=== PATIENT | male | born 1945 | race Caucasian/White ===

== ENCOUNTER 2021-04-23 12:10 | Outpatient (CLI) | payer MEDICARE, OTHER | END 2021-04-23 12:11 | disposition home or self-care (01) | LOC: CSHCT 12:10 | PROVIDERS: ATTEND Psychiatry & Neurology Neurology | DX: G43.701 Chronic migraine without aura, not intractable, with status migrainosus (principal); G93.89 Other specified disorders of brain | CPT/HCPCS: 70450 ==

== ENCOUNTER 2021-07-10 21:36 | Emergency (ER) | payer OTHER, MEDICARE ==
[2021-07-10] MEDS ORDERED: Lidocaine 1% w/Epinephrine 1:100K 20 ML VIAL ONE (23:03)
== END 2021-07-11 00:26 | disposition home or self-care (01) ==
LOC: CSHERS 21:36
DX: S01.01XA Laceration without foreign body of scalp, initial encounter (principal); S20.212A Contusion of left front wall of thorax, initial encounter; W01.190A Fall on same level from slipping, tripping and stumbling with subsequent striking against furniture, initial encounter; Y93.01 Activity, walking, marching and hiking; Y92.008 Other place in unspecified non-institutional (private) residence as the place of occurrence of the external cause; Z79.82 Long term (current) use of aspirin; Z79.899 Other long term (current) drug therapy; Z95.0 Presence of cardiac pacemaker; Z98.890 Other specified postprocedural states
CPT/HCPCS: 12001; 70450; 71045; 72125

== ENCOUNTER 2021-07-23 13:05 | Outpatient (CLI) | payer MEDICARE, OTHER | END 2021-07-23 13:06 | disposition home or self-care (01) | LOC: CSHCT 13:05 | PROVIDERS: ATTEND Thoracic Surgery (Cardiothoracic Vascular Surgery) | DX: I71.2 Thoracic aortic aneurysm, without rupture (principal) | CPT/HCPCS: 71250 ==

== ENCOUNTER 2021-09-30 00:55 | Emergency (ER) | payer OTHER, MEDICARE | END 2021-09-30 02:19 | disposition home or self-care (01) | LOC: CSHERS 00:55 | DX: S42.202A Unspecified fracture of upper end of left humerus, initial encounter for closed fracture (principal); W01.0XXA Fall on same level from slipping, tripping and stumbling without subsequent striking against object, initial encounter; I10 Essential (primary) hypertension; E78.5 Hyperlipidemia, unspecified; E11.9 Type 2 diabetes mellitus without complications; M19.90 Unspecified osteoarthritis, unspecified site; Z79.82 Long term (current) use of aspirin; Z79.899 Other long term (current) drug therapy ==

== ENCOUNTER 2022-02-05 18:13 | Inpatient (IN) | payer MEDICARE, OTHER ==
[2022-02-05] MEDS ORDERED: HYDROcodone/Acetaminophen 5/325 mg Tablet PO SCH (19:30)
[2022-02-05] MEDS ORDERED: Pantoprazole 40 MG VIAL IVP SCH (20:00)
[2022-02-05 20:08] LABS: #Basophils 0.1 10x3/uL (0.0-0.2); #Eosinphils 0.1 10x3/uL (0.0-0.5); #Monocytes 0.4 10x3/uL (0.0-1.1); #Neutrophils 2.6 10x3/uL (1.5-8.4); %Basophils 1.2 % (0.0-2.0); %Eosinophils 2.5 % (0.0-6.0); %Monocytes 9.4 % (0.0-10.0); %Neutrophils 59.7 % (40.0-75.0); Mean Corpuscular HGB CONC 31.5 g/dL (32.0-36.0); Mean Corpuscular Hemoglobin 27.3 pg (27.0-33.0); Mean Corpuscular Volume 86.7 fl (81.2-95.1); Mean Platelet Volume 9.4 fl (7.4-10.4); Platelet Count 282 10x3/uL (150-450); RBC Distribution Width 14.7 % (11.5-14.5); Red Blood Cell (RBC) Count 2.93 10x6/uL (4.32-5.72); White Blood Cell (WBC) Count 4.3 10x3/uL (3.5-10.5)
[2022-02-05 20:20] LABS: Magnesium 2.2 mg/dL (1.6-2.6)
[2022-02-05 20:21] LABS: INR-International Normal Ratio 0.9; PTT 31.3 sec (22.0-33.0); Prothrombin Time 10.3 sec (9.5-12.1)
[2022-02-05 20:25] LABS: Troponin I 0.016 ng/mL (< 0.028)
[2022-02-05 20:33] VITALS: BMI 22.1
[2022-02-05] MEDS ORDERED: [UNRECOGNIZED DRUG - OTHER] PO PRN (20:56)
[2022-02-05] MEDS ORDERED: ACETAMINOPHEN PO PRN (20:56)
[2022-02-05] MEDS ORDERED: Polyethylene Glycol 3350 17 GM Packet PO PRN (20:56)
[2022-02-05] MEDS ORDERED: CAFFEINE PO PRN (20:56)
[2022-02-05] MEDS ORDERED: BUTALB PO PRN (20:56)
[2022-02-05] MEDS ORDERED: Terazosin HCl 5 MG CAP PO SCH (22:00)
[2022-02-05] MEDS ORDERED: Gabapentin 300 MG CAP PO SCH (22:00)
[2022-02-05] MEDS: Terazosin HCl 5 MG CAP PO SCH (22:36)
[2022-02-05] MEDS: Sodium Chloride 0.9% 1,000 ML IV SCH (22:36)
[2022-02-05 23:31] LABS: Hemoglobin 7.1 g/dL (13.5-17.5)
[2022-02-05 23:44] LABS: Troponin I 0.013 ng/mL (< 0.028)
[2022-02-06] MEDS ORDERED: HYDROcodone/Acetaminophen 7.5/325 mg Tablet PO PRN ×2 (00:25)
[2022-02-06] MEDS ORDERED: Morphine 4 MG/ML VIAL SLOW IVP PRN (00:28)
[2022-02-06] MEDS ORDERED: Morphine 2 MG/ML VIAL SLOW IVP PRN (00:48)
[2022-02-06] MEDS ORDERED: Lidocaine 5% Patch TD SCH ×2 (01:00→22:00)
[2022-02-06 05:17] LABS: #Basophils 0.1 10x3/uL (0.0-0.2); #Eosinphils 0.2 10x3/uL (0.0-0.5); #Monocytes 0.4 10x3/uL (0.0-1.1); %Basophils 1.3 % (0.0-2.0); %Eosinophils 4.6 % (0.0-6.0); %Lymphocytes 23.7 % (18.0-47.0); %Monocytes 9.2 % (0.0-10.0); Hemoglobin 7.7 g/dL (13.5-17.5); Mean Corpuscular HGB CONC 31.8 g/dL (32.0-36.0); Mean Corpuscular Hemoglobin 27.3 pg (27.0-33.0); Mean Corpuscular Volume 85.8 fl (81.2-95.1); Mean Platelet Volume 9.6 fl (7.4-10.4); Platelet Count 295 10x3/uL (150-450); RBC Distribution Width 14.7 % (11.5-14.5); Red Blood Cell (RBC) Count 2.82 10x6/uL (4.32-5.72); White Blood Cell (WBC) Count 3.9 10x3/uL (3.5-10.5)
[2022-02-06] MEDS: Sodium Chloride 0.9% 1,000 ML IV SCH ×3 (07:19→19:13)
[2022-02-06] MEDS ORDERED: Calcium Citrate 950 MG (200MG) TAB PO SCH (09:00)
[2022-02-06] MEDS: Cholecalciferol 1,000 UNITS (25 MCG) TAB PO SCH (12:21)
[2022-02-06] MEDS: Ferrous Sulfate 325 MG TAB PO SCH ×2 (12:21→18:01)
[2022-02-06] MEDS: Lubiprostone 8 MCG CAP PO SCH ×2 (12:21→18:00)
[2022-02-06] MEDS: Fluticasone Propionate Nasal Spray 16 gm Bottle NASAL SCH (12:27)
[2022-02-06] MEDS: Cyanocobalamin (Vitamin B-12) 1,000 MCG TAB PO SCH (12:27)
[2022-02-06] MEDS: Magnesium Oxide 400 MG TAB PO SCH (12:28)
[2022-02-06] MEDS: Gabapentin 300 MG CAP PO SCH ×3 (12:28→21:21)
[2022-02-06] MEDS: Vit A,C & E/Lutein/Minerals Tablet PO SCH (12:29)
[2022-02-06] MEDS: Topiramate 25 MG TAB PO SCH (12:44)
[2022-02-06] MEDS ORDERED: Transdermal Patch Removal TOP SCH (13:00)
[2022-02-06] MEDS: Pantoprazole 40 MG VIAL IVP SCH ×2 (13:05→21:22)
[2022-02-06] MEDS ORDERED: PROPOFOL 20 ML ONE (14:34)
[2022-02-06 15:42] LABS: ALT (SGPT) 14 U/L (8-55); AST (SGOT) 14 U/L (5-34); Albumin 3.1 g/dL (3.4-4.8); Alkaline Phosphatase 97 U/L (40-110); Anion Gap 11 mmol/L (10-20); BUN (Urea Nitrogen) 21 mg/dL (8.4-25.7); Bilirubin, Total 0.2 mg/dL (0.2-1.2); Calc. Creatinine Clearance 47 mL/min (70-130); Calcium 8.5 mg/dL (7.8-10.44); Carbon Dioxide 23 mmol/L (23-31); Chloride 106 mmol/L (98-107); Globulin 2.7 g/dL (2.4-3.5); Glucose 143 mg/dL (83-110); Potassium 4.2 mmol/L (3.5-5.1); Protein, Total 5.8 g/dL (5.8-8.1); Sodium 136 mmol/L (136-145)
[2022-02-06] MEDS ORDERED: GoLYTELY 4,000 ml Bottle PO SCH (17:00)
[2022-02-06 17:52] LABS: ALT (SGPT) 14 U/L (8-55); AST (SGOT) 14 U/L (5-34); Albumin 3.4 g/dL (3.4-4.8); Alkaline Phosphatase 111 U/L (40-110); Anion Gap 13 mmol/L (10-20); BUN (Urea Nitrogen) 17 mg/dL (8.4-25.7); Bilirubin, Total 0.6 mg/dL (0.2-1.2); Calc. Creatinine Clearance 49 mL/min (70-130); Calcium 8.6 mg/dL (7.8-10.44); Carbon Dioxide 23 mmol/L (23-31); Chloride 107 mmol/L (98-107); Globulin 3.2 g/dL (2.4-3.5); Glucose 178 mg/dL (83-110); Potassium 3.8 mmol/L (3.5-5.1); Protein, Total 6.6 g/dL (5.8-8.1); Sodium 139 mmol/L (136-145)
[2022-02-06] MEDS: Fioricet 325/50/40 mg Tablet PO PRN (18:00)
[2022-02-06 19:45] LABS: Hemoglobin A1c 5.8 % (4.0-6.0)
[2022-02-06] MEDS: Terazosin HCl 5 MG CAP PO SCH (21:21)
[2022-02-07] MEDS: Fioricet 325/50/40 mg Tablet PO PRN ×2 (04:02→11:00)
[2022-02-07 04:09] LABS: #Eosinphils 0.1 10x3/uL (0.0-0.5); #Monocytes 0.4 10x3/uL (0.0-1.1); #Neutrophils 2.8 10x3/uL (1.5-8.4); %Basophils 0.9 % (0.0-2.0); %Eosinophils 2.9 % (0.0-6.0); %Lymphocytes 25.2 % (18.0-47.0); %Monocytes 9.4 % (0.0-10.0); %Neutrophils 61.2 % (40.0-75.0); Hemoglobin 9.4 g/dL (13.5-17.5); Mean Corpuscular HGB CONC 32.9 g/dL (32.0-36.0); Mean Corpuscular Hemoglobin 27.6 pg (27.0-33.0); Mean Corpuscular Volume 83.9 fl (81.2-95.1); Mean Platelet Volume 9.6 fl (7.4-10.4); Platelet Count 310 10x3/uL (150-450); RBC Distribution Width 14.7 % (11.5-14.5); Red Blood Cell (RBC) Count 3.41 10x6/uL (4.32-5.72); White Blood Cell (WBC) Count 4.6 10x3/uL (3.5-10.5)
[2022-02-07 04:20] LABS: ALT (SGPT) 15 U/L (8-55); AST (SGOT) 14 U/L (5-34); Albumin 3.1 g/dL (3.4-4.8); Alkaline Phosphatase 111 U/L (40-110); Anion Gap 16 mmol/L (10-20); BUN (Urea Nitrogen) 13 mg/dL (8.4-25.7); Calc. Creatinine Clearance 61 mL/min (70-130); Calcium 8.4 mg/dL (7.8-10.44); Carbon Dioxide 22 mmol/L (23-31); Cardiac Risk 2.3 (Less than 4.5); Chloride 108 mmol/L (98-107); Cholesterol 138 mg/dl (< 200 Desired); Globulin 3.1 g/dL (2.4-3.5); Glucose 86 mg/dL (83-110); HDL Cholesterol 60 mg/dL (>60 Neg Risk); LDL Cholesterol, Calculated 69 mg/dL; Magnesium 1.8 mg/dL (1.6-2.6); Potassium 3.8 mmol/L (3.5-5.1); Protein, Total 6.2 g/dL (5.8-8.1); Sodium 142 mmol/L (136-145); Triglycerides 47 mg/dL (Less than 150)
[2022-02-07 04:23] LABS: Bilirubin, Total 0.3 mg/dL (0.2-1.2)
[2022-02-07] MEDS: Fluticasone Propionate Nasal Spray 16 gm Bottle NASAL SCH (04:30)
[2022-02-07] MEDS: Sodium Chloride 0.9% 1,000 ML IV SCH (06:41)
[2022-02-07] MEDS ORDERED: HYDROmorphone 0.5 MG/0.5 ML SYRINGE ONE (06:43)
[2022-02-07] MEDS ORDERED: PROPOFOL 40 ML ONE (06:57)
[2022-02-07] MEDS ORDERED: Lidocaine 2% MPF 10 ML AMP (For Epidural Use) ONE (06:57)
[2022-02-07] MEDS ORDERED: Transdermal Patch Removal TOP SCH (10:00)
[2022-02-07] MEDS: Magnesium Oxide 400 MG TAB PO SCH (10:13)
[2022-02-07] MEDS: Cholecalciferol 1,000 UNITS (25 MCG) TAB PO SCH (10:13)
[2022-02-07] MEDS: Gabapentin 300 MG CAP PO SCH (10:13)
[2022-02-07] MEDS: Vit A,C & E/Lutein/Minerals Tablet PO SCH (10:14)
[2022-02-07] MEDS: Ferrous Sulfate 325 MG TAB PO SCH (10:14)
[2022-02-07] MEDS: Topiramate 25 MG TAB PO SCH (10:14)
[2022-02-07] MEDS: Lubiprostone 8 MCG CAP PO SCH (10:15)
[2022-02-07] MEDS: Cyanocobalamin (Vitamin B-12) 1,000 MCG TAB PO SCH (10:15)
[2022-02-07] MEDS: Pantoprazole 40 MG VIAL IVP SCH (10:17)
[2022-02-07 16:15] VITALS: BP 147/91; TEMP 98.5
== END 2022-02-07 15:45 | disposition home or self-care (01) | DRG 378 ==
LOC: CSHTELE 18:23 → OBSVTOIN 19:49
PROVIDERS: ADMIT Internal Medicine; ATTEND Family Medicine
PROC: 0DJ08ZZ Inspection of Upper Intestinal Tract, Via Natural or Artificial Opening Endoscopic (ICD-10-PCS; principal; 2022-02-06)
PROC: 30233N1 Transfusion of Nonautologous Red Blood Cells into Peripheral Vein, Percutaneous Approach (ICD-10-PCS; 2022-02-06)
PROC: 0DJD8ZZ Inspection of Lower Intestinal Tract, Via Natural or Artificial Opening Endoscopic (ICD-10-PCS; 2022-02-07)
DX: K92.1 Melena (principal); D62 Acute posthemorrhagic anemia; R27.0 Ataxia, unspecified; G44.209 Tension-type headache, unspecified, not intractable; E11.9 Type 2 diabetes mellitus without complications; G43.909 Migraine, unspecified, not intractable, without status migrainosus; I25.118 Atherosclerotic heart disease of native coronary artery with other forms of angina pectoris; I10 Essential (primary) hypertension; G93.89 Other specified disorders of brain; G89.29 Other chronic pain; K64.8 Other hemorrhoids; E78.5 Hyperlipidemia, unspecified; K57.30 Diverticulosis of large intestine without perforation or abscess without bleeding; R29.6 Repeated falls; Z20.822 Contact with and (suspected) exposure to COVID-19; N40.1 Benign prostatic hyperplasia with lower urinary tract symptoms; R39.11 Hesitancy of micturition; Z95.0 Presence of cardiac pacemaker; Z79.02 Long term (current) use of antithrombotics/antiplatelets; Z79.891 Long term (current) use of opiate analgesic; Z95.5 Presence of coronary angioplasty implant and graft; Z79.899 Other long term (current) drug therapy; Z79.82 Long term (current) use of aspirin; Z79.01 Long term (current) use of anticoagulants; Z98.890 Other specified postprocedural states; Z90.49 Acquired absence of other specified parts of digestive tract; Z87.891 Personal history of nicotine dependence; Z98.1 Arthrodesis status; Z82.49 Family history of ischemic heart disease and other diseases of the circulatory system
CPT/HCPCS: 36415; 36416; 36430; 70450; 80053; 80061; 83036; 83735; 84443; 84484; 85025; 85610; 85730; 86850; 86900; 86901; 93005; 93010; C9113; J1170; J2270; J2704; J7050; P9016; U0003; U0005

== ENCOUNTER 2022-05-26 11:37 | Emergency (ER) | payer MEDICARE, OTHER ==
[2022-05-26] MEDS ORDERED: Lidocaine 1% PF 5 ML VIAL ONE (12:32)
[2022-05-26] MEDS ORDERED: Bacitracin 1 PK ONE (12:42)
== END 2022-05-26 13:27 | disposition home or self-care (01) ==
LOC: CSHERS 11:37
DX: S01.01XA Laceration without foreign body of scalp, initial encounter (principal); E78.5 Hyperlipidemia, unspecified; E11.9 Type 2 diabetes mellitus without complications; W19.XXXA Unspecified fall, initial encounter
CPT/HCPCS: 12001; 70450; 72125